=== PATIENT | male | born 2005 ===

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

== ENCOUNTER 2025-02-23 20:34 | Emergency (ER) | payer OTHER ==
[~2025-02-23] VITALS: Ht 185.4 cm; Wt 59.0 kg
[2025-02-23 21:20] VITALS: BP 124/72
[2025-02-24] MEDS ORDERED: Aspirin 81 MG Chew PO ONE (00:20)
[2025-02-24] MEDS ORDERED: Aspirin 81 MG Chew ONE (00:27)
== END 2025-02-24 00:31 | disposition home or self-care (01) ==
LOC: ER 20:34
DX: I82.811 Embolism and thrombosis of superficial veins of right lower extremity (principal); Z88.0 Allergy status to penicillin; Z79.899 Other long term (current) drug therapy
CPT/HCPCS: 93971; 99283-25; A9270